=== PATIENT | male | born 1960 | race Caucasian/White ===

== ENCOUNTER 2017-04-18 21:24 | Inpatient (IN) | payer OTHER ==
[~2017-04-18] VITALS: Ht 177.8 cm; Wt 54.4 kg
[2017-04-18 22:24] LABS: EOSINOPHIL (%) 0.7 % (0-5); HEMATOCRIT 34.7 % (38.0-50.0); IMMATURE GRANULOCYTE (%) 0.2 % (0.0-0.7); INSTRUMENT ABS NEUTROPHIL CT 2.9 K/uL; LYMPHOCYTE COUNT 2.1 K/uL (1.0-2.8); MCHC 33.7 G/DL (30.0-36.0); MEAN PLAT.VOLUME 8.4 uM^3 (9.0-12.4); MONOCYTE (%) 7.9 % (3-12); MONOCYTE COUNT 0.4 K/uL (0-0.8); NEUTROPHIL (%) 52.4 % (45-76); NEUTROPHIL COUNT 2.9 K/uL (1.8-6.4); PLATELET COUNT 225 K/uL (156-360); RBC DIS.WIDTH-SD 45.5 % (39-53); WHITE BLOOD COUNT 5.5 K/uL (4.1-10.2)
[2017-04-18 22:40] LABS: CHLORIDE 102 mEq/L (99-109); POTASSIUM 3.8 mEq/L (3.7-5.4); SODIUM 137 mEq/L (136-147)
[2017-04-18 22:43] LABS: GLUCOSE 89 mg/dL (70-99)
[2017-04-18 22:44] LABS: ANION GAP 8 MEQ/L (2-14)
[2017-04-18 22:45] LABS: TOTAL BILIRUBIN 0.3 mg/dL (0.0-1.0)
[2017-04-18 22:46] LABS: SERUM ETHYL ALCOHOL 193 mg/dL
[2017-04-18 22:47] LABS: ALKALINE PHOSPHATASE 83 IU/L (3-129); GFR ESTIMATE (CALCULATED) > 59 mL/min/
[2017-04-18 22:48] LABS: UREA NITROGEN (BUN) 8 mg/dL (9-23)
[2017-04-18 22:50] LABS: SALICYLATE < 5.0 MG/DL (15-30)
[2017-04-18 22:51] LABS: CREATINE KINASE 408 IU/L (1-294); TOTAL CK 408 IU/L (1-294)
[2017-04-18 22:57] LABS: CK-MB 4.6 ng/mL (0.0-4.9)
[2017-04-19 00:46] LABS: AMPHETAMINE NEGATIVE (500 ng/mL); BARBITURATES NEGATIVE (200 ng/mL); BENZODIAZEPINES NEGATIVE (150 ng/mL); COCAINE NEGATIVE (150 ng/mL); INTERNAL CONTROLS VALID? YES; METHADONE NEGATIVE (200 ng/mL); METHAMPHETAMINE NEGATIVE (500 ng/mL); OPIATES (MORPHINE) NEGATIVE (100 ng/mL); OXYCODONE NEGATIVE (100 ng/mL); PHENCYCLIDINE NEGATIVE (25 ng/mL); PROPOXYPHENE NEGATIVE (300 ng/mL); THC CANNABINOIDS NEGATIVE (50 ng/mL); TRICYCLIC ANTIDEPRESSANTS NEGATIVE (300 ng/mL)
[2017-04-19 00:53] LABS: ADD MIUA? NO; BILIRUBIN NEGATIVE; BLOOD NEGATIVE; COLOR STRAW ((YELLOW)); GLUCOSE (STRIP) NEGATIVE; KETONES NEGATIVE; LEUKOCYTES NEGATIVE; NITRITE NEGATIVE; PROTEIN (STRIP) NEGATIVE; SPECIFIC GRAVITY 1.004 (1.000-1.030); UCUL ADDED? NO; UROBILINOGEN 0.2 MG/DL (0.2-1.0)
[2017-04-19 05:06] VITALS: BP 105/62
[2017-04-19 15:24] VITALS: BP 102/61
[2017-04-20 07:34] VITALS: BP 124/74
[2017-04-20 14:54] VITALS: BP 108/66
[2017-04-21 08:09] VITALS: BP 126/59
[2017-04-22 07:48] VITALS: BP 103/63
[2017-04-22 15:28] VITALS: BP 123/76
[2017-04-23 07:47] VITALS: BP 91/60
[2017-04-23] MEDS ORDERED: HALDOL5 MG PO (10:22)
[2017-04-23] MEDS ORDERED: COGENTIN0.5 MG PO (10:22)
== END 2017-04-23 11:20 | disposition home or self-care (01) | DRG 885 ==
LOC: EME 21:24 → 1WEST 04-19 03:06 → EDOF 04-19 03:06 → ENRESERV 04-19 04:29 → 1WEST 04-19 05:05
PROVIDERS: Emergency Medicine
DX: F20.9 Schizophrenia, unspecified (principal); F10.129 Alcohol abuse with intoxication, unspecified; F14.10 Cocaine abuse, uncomplicated; F95.2 Tourette's disorder; L98.9 Disorder of the skin and subcutaneous tissue, unspecified; R25.9 Unspecified abnormal involuntary movements; F17.200 Nicotine dependence, unspecified, uncomplicated; Z68.1 Body mass index [BMI] 19.9 or less, adult
CPT/HCPCS: 80053; 81003; 82550; 82553; 85025; 90837; 97150 GO; 97165 GO; 99281; 99285; G0480

== ENCOUNTER 2017-06-03 18:56 | Emergency (ER) | payer OTHER ==
[~2017-06-03] VITALS: Ht 172.7 cm; Wt 55.4 kg
[~2017-06-03 18:56] MED LIST: COGENTIN0.5 MG PO; HALDOL5 MG PO
[2017-06-03 19:36] LABS: EOSINOPHIL (%) 2.3 % (0-5); EOSINOPHIL COUNT 0.2 K/uL (0-0.3); HEMATOCRIT 36.6 % (38.0-50.0); IMMATURE GRANULOCYTE (%) 0.2 % (0.0-0.7); INSTRUMENT ABS NEUTROPHIL CT 4.4 K/uL; LYMPHOCYTE COUNT 1.6 K/uL (1.0-2.8); MCHC 34.7 G/DL (30.0-36.0); MCV 89.3 FL (86-99); MEAN PLAT.VOLUME 8.8 uM^3 (9.0-12.4); MONOCYTE (%) 7.2 % (3-12); MONOCYTE COUNT 0.5 K/uL (0-0.8); NEUTROPHIL (%) 66.5 % (45-76); NEUTROPHIL COUNT 4.4 K/uL (1.8-6.4); PLATELET COUNT 230 K/uL (156-360); RBC DIS.WIDTH-CV 14.6 % (11.8-14.6); RBC DIS.WIDTH-SD 47.5 % (39-53); WHITE BLOOD COUNT 6.6 K/uL (4.1-10.2)
[2017-06-03 19:45] LABS: CHLORIDE 106 mEq/L (99-109); POTASSIUM 4.2 mEq/L (3.7-5.4); SODIUM 136 mEq/L (136-147)
[2017-06-03 19:47] LABS: GLUCOSE 89 mg/dL (70-99)
[2017-06-03 19:48] LABS: ANION GAP 9 MEQ/L (2-14)
[2017-06-03 19:50] LABS: GFR ESTIMATE (CALCULATED) > 59 mL/min/; SERUM ETHYL ALCOHOL 44 mg/dL
[2017-06-03 19:52] LABS: UREA NITROGEN (BUN) 15 mg/dL (9-23)
[2017-06-03 19:54] LABS: SALICYLATE < 5.0 MG/DL (15-30)
[2017-06-03 23:28] LABS: ADD MIUA? NO; BILIRUBIN NEGATIVE; BLOOD NEGATIVE; COLOR YELLOW ((YELLOW)); GLUCOSE (STRIP) NEGATIVE; KETONES NEGATIVE; LEUKOCYTES NEGATIVE; NITRITE NEGATIVE; PROTEIN (STRIP) NEGATIVE; SPECIFIC GRAVITY 1.008 (1.000-1.030); UCUL ADDED? NO; UROBILINOGEN 0.2 MG/DL (0.2-1.0)
[2017-06-03 23:37] LABS: AMPHETAMINE NEGATIVE (500 ng/mL); BARBITURATES NEGATIVE (200 ng/mL); BENZODIAZEPINES NEGATIVE (150 ng/mL); COCAINE NEGATIVE (150 ng/mL); INTERNAL CONTROLS VALID? YES; METHADONE NEGATIVE (200 ng/mL); METHAMPHETAMINE NEGATIVE (500 ng/mL); OPIATES (MORPHINE) NEGATIVE (100 ng/mL); OXYCODONE NEGATIVE (100 ng/mL); PHENCYCLIDINE NEGATIVE (25 ng/mL); PROPOXYPHENE NEGATIVE (300 ng/mL); THC CANNABINOIDS NEGATIVE (50 ng/mL); TRICYCLIC ANTIDEPRESSANTS NEGATIVE (300 ng/mL)
[2017-06-04 00:27] VITALS: BP 116/75
== END 2017-06-04 00:31 | disposition home or self-care (01) ==
LOC: EME 18:56
PROVIDERS: Emergency Medicine
DX: F32.9 Major depressive disorder, single episode, unspecified (principal); R22.2 Localized swelling, mass and lump, trunk; F20.9 Schizophrenia, unspecified; Z59.0 Homelessness; F41.9 Anxiety disorder, unspecified; F17.200 Nicotine dependence, unspecified, uncomplicated
CPT/HCPCS: 80048; 81003; 85025; 90837; 99281; 99285; G0480